=== PATIENT | female | born 1965 | race Caucasian/White ===

== ENCOUNTER 2018-09-07 13:28 | Emergency (ER) | payer OTHER ==
[~2018-09-07] VITALS: Ht 167.6 cm; Wt 96.2 kg
[2018-09-07 13:36] VITALS: Ht 167.6 cm; Wt 96.2 kg
[2018-09-07 14:12] VITALS: BP 153/91
== END 2018-09-07 14:12 | disposition home or self-care (01) ==
LOC: ED 13:28
DX: B02.9 Zoster without complications (principal); F17.210 Nicotine dependence, cigarettes, uncomplicated; G43.909 Migraine, unspecified, not intractable, without status migrainosus; Z90.710 Acquired absence of both cervix and uterus; Z88.5 Allergy status to narcotic agent
CPT/HCPCS: 99406; J7512